=== PATIENT | female | born 1975 | race Hispanic/Latino ===

== ENCOUNTER → 2018-07-05 | Outpatient (CLI) | payer BC | END | disposition home or self-care (01) | LOC: RAH 10:47 | PROVIDERS: ATTEND Specialist | DX: Z12.31 Encounter for screening mammogram for malignant neoplasm of breast (principal) | CPT/HCPCS: 77067 ==

== ENCOUNTER → 2019-07-21 | Outpatient (CLI) | payer BC | END | disposition home or self-care (01) | LOC: RAH 13:29 | PROVIDERS: ATTEND Specialist | DX: Z12.31 Encounter for screening mammogram for malignant neoplasm of breast (principal) | CPT/HCPCS: 77067 ==

== ENCOUNTER → 2020-09-22 | Outpatient (CLI) | payer BC | END | disposition home or self-care (01) | LOC: RAH 11:00 | PROVIDERS: ATTEND Specialist | DX: Z12.31 Encounter for screening mammogram for malignant neoplasm of breast (principal) | CPT/HCPCS: 77067 ==